=== PATIENT | male | born 1965 | race Caucasian/White ===

== ENCOUNTER 2021-07-04 12:05 | Observation (INO) ==
[2021-07-04] MEDS ORDERED: *HR* FentaNYL (PF) 100 MCG/2 ML VIAL IVP ONE (15:08)
[2021-07-04] MEDS ORDERED: 0.9 % Sodium Chloride 1,000 ML IVC ONE (15:08)
[2021-07-04] MEDS ORDERED: Ondansetron 4 MG/2 ML VIAL IVP PRN (17:43)
[2021-07-04] MEDS ORDERED: Naloxone 0.4 MG/ML INJ IVP PRN (17:43)
[2021-07-04] MEDS ORDERED: 0.9 % Sodium Chloride 1,000 ML IVC SCH (17:45)
[2021-07-04] MEDS ORDERED: Ampicillin/Sulbactam 1,500 MG in 0.9 % Sodium Chloride Mini Bag 100 ML IVPB SCH (18:00)
[2021-07-04] MEDS ORDERED: Ketorolac 30 MG/ML VIAL IVP ONE (20:58)
[2021-07-04] MEDS: *HR* Heparin 5,000 UNIT/ML VIAL SQ SCH (21:09)
[2021-07-05] MEDS: Ampicillin/Sulbactam 1,500 MG in 0.9 % Sodium Chloride Mini Bag 100 ML IVPB SCH ×2 (02:40→09:00)
[2021-07-05] MEDS ORDERED: Ketorolac 30 MG/ML VIAL IVP ONE (04:36)
[2021-07-05] MEDS: *HR* Heparin 5,000 UNIT/ML VIAL SQ SCH (04:49)
[2021-07-05 06:40] LABS: Basophils # 0.1 K/mcL (0.0-0.2); Basophils % 0.7 %; Eosinophils # 0.1 K/mcL (0.0-0.6); Eosinophils % 1.3 %; Hematocrit 43.6 % (37.5-50.1); Immature Granulocytes % 0.3 % (0-4); Lymphocytes # 2.6 K/mcL (0.6-4.6); Mean Corpuscular HGB Conc 32.1 g/dL (31.6-35.5); Mean Corpuscular Volume 87.2 fL (83.0-100.0); Mean Platelet Volume 9.3 fL (9.4-12.4); Monocytes # 0.5 K/mcL (0.0-1.3); Monocytes % 6.5 %; Neutrophils # 3.7 K/mcL (1.6-8.9); Platelet Count 179 K/mcL (140-400); Red Cell Distribution Width 15.3 % (11.5-14.5); Segmented Neutrophils % 54.2 %; White Blood Count 6.9 K/mcL (4.3-11.1)
[2021-07-05 06:53] LABS: Alanine Aminotransferase 4 Units/L (7-52); Albumin 3.8 g/dL (3.5-5.7); Albumin/Globulin Ratio 1.7 (1.1-2.2); Alkaline Phosphatase 45 Units/L (34-104); Aspartate Amino Transferase 12 Units/L (13-39); BUN/Creatinine Ratio 14 (6-26); Bilirubin,Total 0.4 mg/dL (0.3-1.0); Blood Urea Nitrogen 11 mg/dL (6-20); Calcium 8.7 mg/dL (8.6-10.3); Carbon Dioxide 23 mEq/L (23-29); Chloride 109 mEq/L (98-107); Globulin 2.2 g/dL (2.4-3.5); Glucose 85 mg/dL (70-105); Osmolality,Calculated 289 (280-300); Potassium 3.6 mEq/L (3.5-5.1); Sodium 140 mEq/L (136-145); eGFR For African Americans > 60 (> 60); eGFR For Non-African Americans > 60 (> 60)
[2021-07-05] MEDS ORDERED: *HR* Propofol 200 MG/20 ML VIAL IVP ONE (07:11)
[2021-07-05] MEDS ORDERED: *HR* Midazolam HCl 2 MG/2 ML VIAL ONE (07:11)
[2021-07-05] MEDS ORDERED: *HR* FentaNYL (PF) 100 MCG/2 ML VIAL ONE (07:11)
[2021-07-05] MEDS ORDERED: *HR* Rocuronium Bromide 50 MG/5 ML VIAL ONE (07:13)
[2021-07-05] MEDS ORDERED: *HR* Succinylcholine 200 MG/10 ML VIAL IVP ONE (07:13)
[2021-07-05] MEDS ORDERED: Lidocaine -MPF 2% 5 ML VIAL ONE (07:13)
[2021-07-05] MEDS ORDERED: Isovue-300 50ML VIAL ONE (08:07)
[2021-07-05] MEDS ORDERED: Acetaminophen IV 1,000 MG/100 ML BAG IVPB ONE (09:01)
[2021-07-05] MEDS ORDERED: *HR* Atropine Sulfate 1 MG/10 ML SYRINGE ONE (09:01)
[2021-07-05] MEDS ORDERED: Nitroglycerin 0.4 MG TAB.SUBL SL PRN (09:06)
[2021-07-05] MEDS ORDERED: Albuterol 2.5 MG/3 ML NEBULIZER IH PRN (09:06)
[2021-07-05] MEDS ORDERED: *HR* Metoprolol 5 MG/5 ML VIAL IVP PRN (09:06)
[2021-07-05] MEDS ORDERED: Naloxone 0.4 MG/ML INJ IVP PRN ×2 (09:06→11:36)
[2021-07-05] MEDS ORDERED: Ipratropium Neb 0.5 MG NEBULIZER IH PRN (09:06)
[2021-07-05] MEDS ORDERED: *HR* HYDROmorphone (PF) 1 MG/ML SYRINGE IVP PRN (09:06)
[2021-07-05] MEDS ORDERED: *HR* FentaNYL (PF) 100 MCG/2 ML VIAL IVP PRN (09:06)
[2021-07-05] MEDS ORDERED: Ondansetron 4 MG/2 ML VIAL IVP PRN ×2 (09:06→11:36)
[2021-07-05] MEDS ORDERED: Lidocaine HCL 4 ML Topical Solution (Laryng-O-Jet Kit Sterile Pak) TP ONE (10:08)
[2021-07-05] MEDS ORDERED: Ondansetron 4 MG/2 ML VIAL ONE (10:08)
[2021-07-05] MEDS ORDERED: *HR* HYDROMORPHONE 2 MG/ML VIAL ONE (10:20)
[2021-07-05] MEDS ORDERED: Ketorolac 30 MG/ML VIAL ONE (10:34)
[2021-07-05] MEDS ORDERED: *HR* Metoprolol 5 MG/5 ML VIAL IVP ONE (10:35)
[2021-07-05] MEDS ORDERED: Sugammadex Sodium 200 MG/2 ML VIAL IV ONE (10:57)
[2021-07-05] MEDS ORDERED: *HR* HYDROcodone/Acet 5/325 mg TABLET PO PRN (12:00)
[2021-07-05 12:23] VITALS: TEMP 98.1
[2021-07-05] MEDS ORDERED: *HR* Heparin 5,000 UNIT/ML VIAL SQ SCH (14:00)
[2021-07-05] MEDS ORDERED: Ampicillin/Sulbactam 1,500 MG in 0.9 % Sodium Chloride Mini Bag 100 ML IVPB SCH (15:00)
[2021-07-05 15:53] VITALS: BP 130/81; PULSE 81; O2SAT 96
== END 2021-07-05 16:12 | disposition home or self-care (01) ==
LOC: 3BNU 12:05 → EMEROOARM 12:05 → 3BNU 07-05 18:00
PROVIDERS: ADMIT Internal Medicine; ATTEND Internal Medicine